=== PATIENT | male | born 1990 | race Caucasian/White ===

== ENCOUNTER → 2016-06-16 | Outpatient (CLI) | payer OTHER ==
[~2016-06-16] MED LIST: ALBU6.7H INH; HYDR25TA5 PO; METO100T9 PO; NAPR500 PO; POTA-163 PO; SYMB80AE INH
[2016-06-16 12:00] LABS: BICARBONATE 28.3 MEQ/L (21.0-32.0); POTASSIUM 3.8 MEQ/L (3.5-5.1)
== END ==
LOC: CLAB 11:17
PROVIDERS: ATTEND Family Medicine
DX: I10 Essential (primary) hypertension (principal)
CPT/HCPCS: 36415; 80048

== ENCOUNTER → 2016-12-18 | Outpatient (CLI) | payer OTHER ==
[2016-12-18 07:26] LABS: AUTOMATED NEUTROPHIL # 5.2 TH/MM3 (1.8-7.7); BASOPHIL % 0.5 % (0.0-2.0); EOSINOPHIL # 0.3 TH/MM3 (0-0.4); EOSINOPHIL % 3.7 % (0.0-4.0); HEMATOCRIT 41.8 % (39.0-51.0); HEMO FLAGS DIFF FINAL; LYMPH % 25.1 % (9.0-44.0); LYMPHOCYTE # 2.2 TH/MM3 (1.0-4.8); MEAN CELL VOLUME 87.1 FL (80.0-100.0); MEAN CORPUSCULAR HEMOGLOBIN 29.5 PG (27.0-34.0); MEAN CORPUSCULAR HGB CONC 33.9 % (32.0-36.0); MONO % 10.5 % (0.0-8.0); NEUT % 60.2 % (16.0-70.0); PLATELET COUNT 196 TH/MM3 (150-450); RED CELL DISTRIBUTION WIDTH 14.4 % (11.6-17.2); WHITE BLOOD COUNT 8.6 TH/MM3 (4.0-11.0)
[2016-12-18 07:57] LABS: ALT (GPT) 27 U/L (12-78); ANION GAP 8 MEQ/L (5-15); AST (GOT) 12 U/L (15-37); BICARBONATE 28.3 MEQ/L (21.0-32.0); BLOOD UREA NITROGEN 14 MG/DL (7-18); CHLORIDE 105 MEQ/L (98-107); GLOMERULAR FILTRATION RATE 95 ML/MIN (>89); GLUCOSE,FASTING 88 MG/DL (74-99); POTASSIUM 3.6 MEQ/L (3.5-5.1); SODIUM (NA) 141 MEQ/L (136-145)
[2016-12-18 08:06] LABS: ALKALINE PHOSPHATASE 49 U/L (45-117); HDL CHOLESTEROL 42.4 MG/DL (40.0-60.0); TOTAL BILIRUBIN ADULT 0.3 MG/DL (0.2-1.0)
[2016-12-18 08:07] LABS: LDL CHOLESTEROL 111 MG/DL (0-99)
== END ==
LOC: CLAB 06:51
PROVIDERS: ATTEND Family Medicine
DX: R51 Headache (principal); I10 Essential (primary) hypertension; Z13.220 Encounter for screening for lipoid disorders; Z68.44 Body mass index [BMI] 60.0-69.9, adult
CPT/HCPCS: 36415; 80053; 80061; 84443; 85025

== ENCOUNTER → 2017-08-13 | Outpatient (CLI) | payer OTHER ==
[~2017-08-13] MED LIST changes: -METO100T9 PO; +METO1TAB43 PO
[2017-08-13 12:32] LABS: BICARBONATE 31.2 MEQ/L (21.0-32.0); CALCIUM 8.9 MG/DL (8.5-10.1)
== END ==
LOC: CLAB 11:26
PROVIDERS: ATTEND Nuclear Medicine Nuclear Cardiology
DX: E78.5 Hyperlipidemia, unspecified (principal); I11.9 Hypertensive heart disease without heart failure
CPT/HCPCS: 36415; 80048

== ENCOUNTER → 2017-09-20 | Outpatient (CLI) | payer OTHER ==
[2017-09-20 10:15] LABS: AUTOMATED NEUTROPHIL # 4.6 TH/MM3 (1.8-7.7); BASOPHIL % 0.4 % (0.0-2.0); EOSINOPHIL # 0.3 TH/MM3 (0-0.4); HEMATOCRIT 42.5 % (39.0-51.0); LYMPH % 24.7 % (9.0-44.0); LYMPHOCYTE # 1.9 TH/MM3 (1.0-4.8); MEAN CELL VOLUME 87.5 FL (80.0-100.0); MEAN CORPUSCULAR HEMOGLOBIN 28.8 PG (27.0-34.0); MEAN CORPUSCULAR HGB CONC 32.9 % (32.0-36.0); MEAN PLATELET VOLUME 9.3 FL (7.0-11.0); MONO % 11.1 % (0.0-8.0); MONOCYTE # 0.9 TH/MM3 (0-0.9); NEUT % 59.8 % (16.0-70.0); PLATELET COUNT 220 TH/MM3 (150-450); RED BLOOD COUNT 4.86 MIL/MM3 (4.50-5.90); WHITE BLOOD COUNT 7.7 TH/MM3 (4.0-11.0)
[2017-09-20 10:28] LABS: BACTERIA, URINE RARE /hpf; BILIRUBIN, URINE NEG (NEG); BLOOD, URINE NEG (NEG); GLUCOSE,URINE NEG (NEG); KETONE, URINE NEG (NEG); MUCUS URINE FEW /lpf (OCC); NITRITE,URINE NEG (NEG); PH, URINE 5.5 (5.0-8.5); SQUAMOUS EPITHELIAL CELL URINE 1 /hpf (0-5); URINE COLOR YELLOW (YELLW/STRAW); URINE LEUKOCYTE ESTERASE SMALL (NEG)
[2017-09-20 10:41] LABS: ALBUMIN 3.6 GM/DL (3.4-5.0); AST (GOT) 18 U/L (15-37); BICARBONATE 30.1 MEQ/L (21.0-32.0); BLOOD UREA NITROGEN 13 MG/DL (7-18); CALCIUM 9.3 MG/DL (8.5-10.1); CHLORIDE 103 MEQ/L (98-107); CHOLESTEROL 156 MG/DL (120-200); CREATININE 0.92 MG/DL (0.60-1.30); GLOMERULAR FILTRATION RATE 98 ML/MIN (>89); GLUCOSE,FASTING 90 MG/DL (74-99); MAGNESIUM 2.1 MG/DL (1.5-2.5); SODIUM (NA) 139 MEQ/L (136-145); TRIGLYCERIDES 81 MG/DL (42-150)
[2017-09-20 11:07] LABS: % SATURATION IRON PROFILE 14.2 % (20-50); ALKALINE PHOSPHATASE 54 U/L (45-117); ALT (GPT) 36 U/L (12-78); CHOLESTEROL/ HDL RATIO 2.91 RATIO; FERRITIN 39 NG/ML (26-388); FREE T3 3.25 PG/ML (2.18-3.98); FREE T4 0.89 NG/DL (0.76-1.46); HDL CHOLESTEROL 53.5 MG/DL (40.0-60.0); IRON (FE) 54 MCG/DL (65-175); LDL CHOLESTEROL 86 MG/DL (0-99); PHOSPHORUS 4.1 MG/DL (2.5-4.9); TOTAL BILIRUBIN ADULT 0.2 MG/DL (0.2-1.0); TOTAL IRON BINDING CAPACITY 379 MCG/DL (250-450); TOTAL PROTEIN 7.4 GM/DL (6.4-8.2)
== END ==
LOC: CLAB 09:32
PROVIDERS: ATTEND Nurse Practitioner
DX: E66.01 Morbid (severe) obesity due to excess calories (principal); R82.90 Unspecified abnormal findings in urine
CPT/HCPCS: 36415; 80053; 80061; 81001; 82306; 82607; 82728; 82746; 83540; 83550; 83735; 83970; 84100; 84439; 84481; 84590; 85025; 87086